=== PATIENT | male | born 1975 | race African-American/Black ===

== ENCOUNTER 2016-06-24 18:07 | Emergency (ER) | payer BC, OTHER ==
[~2016-06-24] VITALS: Ht 170.2 cm; Wt 77.1 kg
[2016-06-24 18:35] LABS: ABSOLUTE NEUTROPHILS 9.1 thou/uL (1.4-8.2); BASOPHILS 0.7 % (0.0-2.0); EOSINOPHILS 0.1 % (0.0-3.0); HEMATOCRIT 45.3 % (42.0-52.0); HEMOGLOBIN 15.6 gm/dL (14.0-18.0); LYMPHOCYTES 18.1 % (24.0-44.0); MCH 30.1 pg (26.0-34.0); MCHC 34.4 % (28.0-37.0); MCV 87.6 fL (80.0-100.0); MONOCYTES 6.1 % (1.0-8.0); PLATELET COUNT 264 thou/uL (150-400); RBC 5.18 mil/uL (4.50-6.00); RDW 13.8 % (10.5-14.5); WBC 12.1 thou/uL (4.0-11.0)
[2016-06-24 18:36] LABS: MANUAL DIFF NO
[2016-06-24 18:44] LABS: CALCIUM 9.5 mg/dL (8.5-10.1); CREATININE 1.1 mg/dL (0.6-1.3); POTASSIUM 3.9 mmol/L (3.5-5.1)
[2016-06-24 18:49] LABS: ALBUMIN 4.2 g/dL (3.4-5.0); TOTAL BILIRUBIN 0.6 mg/dL (<0.1-1.0); TOTAL PROTEIN 8.2 g/dL (6.4-8.2)
[2016-06-24 19:22] LABS: URINE BILIRUBIN NEGATIVE (Negative); URINE BLOOD TRACE (Negative); URINE COLOR YELLOW; URINE GLUCOSE-RANDOM* NEGATIVE (Negative); URINE KETONES 1+ (Negative); URINE LEUKOCYTES-REFLEX NEGATIVE (Negative); URINE PROTEIN (DIPSTICK) TRACE (Negative); URINE SPECIFIC GRAVITY 1.015 (1.003-1.035); URINE UROBILINOGEN 0.2 E.U./dl (0.2-1.0)
[2016-06-24] MEDS ORDERED: PHENERGAN 25 MG25 M1 PO (22:43)
[2016-06-24] MEDS ORDERED: ZANTAC 150MG T150 MG PO (22:43)
[2016-06-24 22:51] VITALS: BP 144/94
== END 2016-06-24 22:52 | disposition home or self-care (01) ==
LOC: ER 18:07
PROVIDERS: Physician Assistant
DX: R10.13 Epigastric pain (principal); D72.828 Other elevated white blood cell count; F17.210 Nicotine dependence, cigarettes, uncomplicated; F10.99 Alcohol use, unspecified with unspecified alcohol-induced disorder